=== PATIENT | female | born 1960 | race Caucasian/White ===

== ENCOUNTER → 2017-09-24 | Outpatient (CLI) | payer OTHER ==
[~2017-09-24] MED LIST: AMLO5 PO; AMOX875 PO; ASPI81CH PO; ATOR10 PO; ATOR40TA PO; BYDUREON2 MG SQ; CYAN500 PO; FERR325 PO; FURO20 PO; FURO40 PO; GABA300 PO; GABA400 PO; INSLI100I SC; INSULANI SUBQ; INSULANPEN SC; IRON150C PO; LOSA50 PO; METF500 PO; NEBI10 PO; OMEP20ER PO; SPIR25 PO; TIOT18 INH
== END | disposition home or self-care (01) ==
LOC: LAB SHORT 10:57 → LAB EV 10:57
DX: J18.0 Bronchopneumonia, unspecified organism (principal)
CPT/HCPCS: 83880

== ENCOUNTER → 2018-04-03 | Outpatient (CLI) | payer OTHER | LOC: LAB SHORT 15:20 → LAB EV 15:20 | DX: R30.0 Dysuria (principal) | CPT/HCPCS: 87077; 87086; 87186 ==

== ENCOUNTER → 2018-04-11 | Outpatient (CLI) | payer OTHER ==
[~2018-04-11] MED LIST changes: +Amox Tr-K Clv1 EAC1 PO; +INSU100I6 SC; +METO25ER PO; +NORT25 PO
[2018-04-11 16:34] LABS: BASOPHILS ABSOLUTE AUTO 0.05 K/mm3 (0.00-0.23); BASOPHILS PERCENT AUTO 1 % (0-2); EOSINOPHILS ABSOLUTE AUTO 0.31 K/mm3 (0.00-0.68); EOSINOPHILS PERCENT AUTO 3 % (0-6); Hematocrit 38.9 % (33.0-51.0); IMMATURE GRAN ABSOLUTE AUTO 0.03 K/mm3 (0.00-0.10); IMMATURE GRAN PERCENT AUTO 0 % (0-1); LYMPHOCYTES ABSOLUTE AUTO 4.21 K/mm3 (0.84-5.20); LYMPHOCYTES PERCENT AUTO 41 % (21-46); MONOCYTES ABSOLUTE AUTO 0.67 K/mm3 (0.16-1.47); MONOCYTES PERCENT AUTO 7 % (4-13); Mean Corpuscular HGB 28.1 pg (26.0-34.0); Mean Corpuscular HGB Conc 33.4 g/dL (31.5-36.5); Mean Corpuscular Volume 84 fL (80-100); NEUTROPHILS ABSOLUTE AUTO 4.92 K/mm3 (1.96-9.15); NEUTROPHILS PERCENT AUTO 48 % (41-73); Platelet Count 326 K/mm3 (150-400); RDW Coefficient Variation 14.8 % (11.7-14.2); RDW Standard Deviation 44.6 fL (35.1-46.3); Red Blood Cell Count 4.63 M/mm3 (3.80-5.20); White Blood Cell Count 10.19 K/mm3 (4.00-11.30)
[2018-04-11 16:43] LABS: Calcium, Blood 10.5 mg/dL (8.5-10.1); Creatinine, Blood 2.47 mg/dL (0.40-1.00); Potassium, Blood 4.5 mmol/L (3.5-5.5)
== END ==
LOC: LAB SHORT 16:28 → LAB EV 16:28
PROVIDERS: Nurse Practitioner
DX: L97.909 Non-pressure chronic ulcer of unspecified part of unspecified lower leg with unspecified severity (principal); Z53.9 Procedure and treatment not carried out, unspecified reason
CPT/HCPCS: 80048; 85025; 85651

== ENCOUNTER 2018-04-13 13:28 | Emergency (ER) | payer OTHER ==
[~2018-04-13] VITALS: Ht 167.6 cm; Wt 123.0 kg
[~2018-04-13 13:28] MED LIST changes: -Amox Tr-K Clv1 EAC1 PO; -INSU100I6 SC; -METO25ER PO; -NORT25 PO
[2018-04-13] MEDS ORDERED: METO25ER PO ×2 (15:06)
[2018-04-13] MEDS ORDERED: NORT25 PO ×2 (15:08)
== END 2018-04-13 13:40 | disposition left against medical advice (07) ==
LOC: ER 13:28
DX: Z53.21 Procedure and treatment not carried out due to patient leaving prior to being seen by health care provider (principal)

== ENCOUNTER 2018-04-13 14:29 | Inpatient (IN) | payer OTHER ==
[~2018-04-13] VITALS: Ht 167.6 cm; Wt 123.0 kg
[2018-04-13] MEDS ORDERED: METO25ER PO ×2 (15:06)
[2018-04-13] MEDS ORDERED: NORT25 PO ×2 (15:08)
[2018-04-13 16:53] LABS: Source, Urine Clean Catch
[2018-04-13 16:56] LABS: Bilirubin, Urine Neg (Neg); Blood, Urine Neg (Neg); Glucose Qualitative, Urine 1+ (Neg); Ketones, Urine Neg (Neg); Leukocyte Esterase, Urine Neg (Neg); Nitrite, Urine Neg (Neg); Protein, Urine Neg (Neg); Urobilinogen, Urine NORM (Normal)
[2018-04-13 17:13] LABS: Appearance, Urine Clear (Clear); Color, Urine Yellow (P-Yellow)
[2018-04-14 05:15] LABS: BASOPHILS ABSOLUTE AUTO 0.03 K/mm3 (0.00-0.23); BASOPHILS PERCENT AUTO 0 % (0-2); EOSINOPHILS ABSOLUTE AUTO 0.25 K/mm3 (0.00-0.68); EOSINOPHILS PERCENT AUTO 3 % (0-6); Hematocrit 34.3 % (33.0-51.0); Hemoglobin 11.2 g/dL (11.5-16.0); IMMATURE GRAN ABSOLUTE AUTO 0.03 K/mm3 (0.00-0.10); IMMATURE GRAN PERCENT AUTO 0 % (0-1); LYMPHOCYTES ABSOLUTE AUTO 4.18 K/mm3 (0.84-5.20); LYMPHOCYTES PERCENT AUTO 52 % (21-46); MONOCYTES ABSOLUTE AUTO 0.54 K/mm3 (0.16-1.47); MONOCYTES PERCENT AUTO 7 % (4-13); Mean Corpuscular HGB 27.6 pg (26.0-34.0); Mean Corpuscular HGB Conc 32.7 g/dL (31.5-36.5); Mean Platelet Volume 10.9 fL (9.1-12.4); NEUTROPHILS ABSOLUTE AUTO 2.95 K/mm3 (1.96-9.15); NEUTROPHILS PERCENT AUTO 37 % (41-73); Platelet Count 274 K/mm3 (150-400); RDW Coefficient Variation 14.5 % (11.7-14.2); RDW Standard Deviation 44.1 fL (35.1-46.3); Red Blood Cell Count 4.06 M/mm3 (3.80-5.20); White Blood Cell Count 7.98 K/mm3 (4.00-11.30)
[2018-04-14 05:19] LABS: Mean Corpuscular Volume 85 fL (80-100)
[2018-04-14 05:39] LABS: Bun/Creatinine Ratio 20.5 (12.0-20.0); Calcium, Blood 8.7 mg/dL (8.5-10.1); Creatinine, Blood 1.51 mg/dL (0.40-1.00); Potassium, Blood 4.1 mmol/L (3.5-5.5)
[2018-04-15 05:36] LABS: BASOPHILS ABSOLUTE AUTO 0.03 K/mm3 (0.00-0.23); BASOPHILS PERCENT AUTO 0 % (0-2); EOSINOPHILS PERCENT AUTO 5 % (0-6); Hematocrit 33.6 % (33.0-51.0); Hemoglobin 10.8 g/dL (11.5-16.0); IMMATURE GRAN ABSOLUTE AUTO 0.02 K/mm3 (0.00-0.10); IMMATURE GRAN PERCENT AUTO 0 % (0-1); LYMPHOCYTES ABSOLUTE AUTO 3.14 K/mm3 (0.84-5.20); LYMPHOCYTES PERCENT AUTO 47 % (21-46); MONOCYTES ABSOLUTE AUTO 0.43 K/mm3 (0.16-1.47); MONOCYTES PERCENT AUTO 6 % (4-13); Mean Corpuscular HGB 27.8 pg (26.0-34.0); Mean Corpuscular HGB Conc 32.1 g/dL (31.5-36.5); Mean Corpuscular Volume 87 fL (80-100); Mean Platelet Volume 10.7 fL (9.1-12.4); NEUTROPHILS ABSOLUTE AUTO 2.81 K/mm3 (1.96-9.15); NEUTROPHILS PERCENT AUTO 42 % (41-73); Platelet Count 234 K/mm3 (150-400); RDW Coefficient Variation 14.2 % (11.7-14.2); RDW Standard Deviation 44.8 fL (35.1-46.3); Red Blood Cell Count 3.88 M/mm3 (3.80-5.20); White Blood Cell Count 6.73 K/mm3 (4.00-11.30)
[2018-04-15 05:53] LABS: Bun/Creatinine Ratio 16.3 (12.0-20.0); Calcium, Blood 8.5 mg/dL (8.5-10.1); Creatinine, Blood 1.47 mg/dL (0.40-1.00)
[2018-04-15] MEDS ORDERED: Amox Tr-K Clv1 EAC1 PO ×2 (16:21)
[2018-04-15] MEDS ORDERED: INSU100I6 SC ×2 (16:22)
== END 2018-04-15 18:18 | disposition home or self-care (01) | DRG 638 ==
LOC: MEDS 14:29
PROVIDERS: Internal Medicine; Student in an Organized Health Care Education/Training Program
DX: E11.621 Type 2 diabetes mellitus with foot ulcer (principal); L97.419 Non-pressure chronic ulcer of right heel and midfoot with unspecified severity; L03.115 Cellulitis of right lower limb; N17.9 Acute kidney failure, unspecified; E11.51 Type 2 diabetes mellitus with diabetic peripheral angiopathy without gangrene; E11.40 Type 2 diabetes mellitus with diabetic neuropathy, unspecified; E11.319 Type 2 diabetes mellitus with unspecified diabetic retinopathy without macular edema; E11.21 Type 2 diabetes mellitus with diabetic nephropathy; E11.43 Type 2 diabetes mellitus with diabetic autonomic (poly)neuropathy; K31.84 Gastroparesis; E11.22 Type 2 diabetes mellitus with diabetic chronic kidney disease; Z86.73 Personal history of transient ischemic attack (TIA), and cerebral infarction without residual deficits; I12.9 Hypertensive chronic kidney disease with stage 1 through stage 4 chronic kidney disease, or unspecified chronic kidney disease; E78.5 Hyperlipidemia, unspecified; Z79.82 Long term (current) use of aspirin; Z79.4 Long term (current) use of insulin; N18.3 Chronic kidney disease, stage 3 (moderate)
CPT/HCPCS: 36415; 73721; 80048; 81003; 82947; 83605; 85025; 85651; 93922; J1650; J1815; J2543; J3010; J3370; J7030; J7050

== ENCOUNTER → 2018-04-13 | Outpatient (CLI) | payer OTHER ==
[2018-04-13 12:33] LABS: BASOPHILS ABSOLUTE AUTO 0.04 K/mm3 (0.00-0.23); BASOPHILS PERCENT AUTO 0 % (0-2); EOSINOPHILS PERCENT AUTO 2 % (0-6); Hematocrit 44.7 % (33.0-51.0); Hemoglobin 14.3 g/dL (11.5-16.0); IMMATURE GRAN ABSOLUTE AUTO 0.04 K/mm3 (0.00-0.10); IMMATURE GRAN PERCENT AUTO 0 % (0-1); LYMPHOCYTES ABSOLUTE AUTO 3.24 K/mm3 (0.84-5.20); LYMPHOCYTES PERCENT AUTO 36 % (21-46); MONOCYTES ABSOLUTE AUTO 0.56 K/mm3 (0.16-1.47); MONOCYTES PERCENT AUTO 6 % (4-13); Mean Corpuscular HGB 28.1 pg (26.0-34.0); Mean Corpuscular Volume 88 fL (80-100); NEUTROPHILS ABSOLUTE AUTO 4.81 K/mm3 (1.96-9.15); NEUTROPHILS PERCENT AUTO 54 % (41-73); Platelet Count 270 K/mm3 (150-400); RDW Coefficient Variation 14.7 % (11.7-14.2); Red Blood Cell Count 5.09 M/mm3 (3.80-5.20); White Blood Cell Count 8.89 K/mm3 (4.00-11.30)
[2018-04-13 12:52] LABS: Bun/Creatinine Ratio 19.9 (12.0-20.0); Calcium, Blood 10.1 mg/dL (8.5-10.1); Creatinine, Blood 2.06 mg/dL (0.40-1.00); Potassium, Blood 5.2 mmol/L (3.5-5.5)
== END | disposition home or self-care (01) ==
LOC: LAB EV 12:29 → LAB SHORT 12:29
PROVIDERS: General Practice
DX: E11.40 Type 2 diabetes mellitus with diabetic neuropathy, unspecified (principal)
CPT/HCPCS: 80048; 85025

== ENCOUNTER → 2021-01-25 | Outpatient (CLI) | payer OTHER ==
[~2021-01-25] MED LIST changes: +Amox Tr-K Clv1 EAC1 PO; +INSU100I6 SC; +METO25ER PO; +NORT25 PO
[2021-01-25 14:04] LABS: Source, Urine Clean Catch
[2021-01-25 15:10] LABS: Appearance, Urine Hazy (Clear); Bilirubin, Urine Neg (Neg); Blood, Urine 1+ (Neg); Color, Urine Yellow (P-Yellow); Glucose Qualitative, Urine 4+ (Neg); Ketones, Urine Neg (Neg); Leukocyte Esterase, Urine 2+ (Neg); Nitrite, Urine Neg (Neg); Protein, Urine 2+ (Neg); Urobilinogen, Urine NORM (Normal)
[2021-01-25 16:26] LABS: Bacteria Many /hpf; Squamous Epithelial Cells Mod /hpf (Few); White Blood Cells, Urine 50-100 /hpf (0-5)
== END ==
LOC: LAB 09:45 → LAB SHORT 09:45
PROVIDERS: Internal Medicine
DX: N18.32 Chronic kidney disease, stage 3b (principal); R39.89 Other symptoms and signs involving the genitourinary system; Z88.1 Allergy status to other antibiotic agents; Z88.5 Allergy status to narcotic agent; Z88.8 Allergy status to other drugs, medicaments and biological substances
CPT/HCPCS: 81001; 87077; 87086; 87186

== ENCOUNTER 2021-04-19 20:05 | Emergency (ER) | payer OTHER ==
[~2021-04-19] VITALS: Ht 167.6 cm; Wt 117.9 kg
== END 2021-04-19 22:11 | disposition home or self-care (01) ==
LOC: ER 20:05
DX: S40.012A Contusion of left shoulder, initial encounter (principal); E11.649 Type 2 diabetes mellitus with hypoglycemia without coma; I10 Essential (primary) hypertension; Z79.4 Long term (current) use of insulin; Z79.899 Other long term (current) drug therapy; V49.9XXA Car occupant (driver) (passenger) injured in unspecified traffic accident, initial encounter
CPT/HCPCS: 82947; 96374; 99284-25; A9270

== ENCOUNTER → 2021-06-27 | Outpatient (CLI) | payer OTHER | END | disposition home or self-care (01) | LOC: LAB SHORT 12:25 | DX: L60.2 Onychogryphosis (principal); B35.1 Tinea unguium | CPT/HCPCS: 88305; 88312 ==

== ENCOUNTER 2022-08-27 07:02 | Inpatient (IN) | payer OTHER ==
[~2022-08-27] VITALS: Ht 167.6 cm; Wt 115.3 kg
[~2022-08-27 07:02] MED LIST changes: -ATOR40TA PO; +ATOR80 PO; -INSU100I6 SC; +NOVOLOG FL100 UNIT/3 SC
[2022-08-27 08:03] LABS: Source, Urine Straight Cath
[2022-08-27 08:06] LABS: Appearance, Urine Clear (Clear); Bilirubin, Urine Neg (Neg); Blood, Urine 2+ (Neg); Color, Urine Yellow (P-Yellow); Glucose Qualitative, Urine 4+ (Neg); Ketones, Urine 4+ (Neg); Leukocyte Esterase, Urine Neg (Neg); Nitrite, Urine Neg (Neg); Protein, Urine 4+ (Neg); Urobilinogen, Urine NORM (Normal)
[2022-08-27 08:32] LABS: Red Blood Cells, Urine 0-2 /hpf (0-2); White Blood Cells, Urine 0-2 /hpf (0-5)
[2022-08-27 08:33] LABS: Bacteria Few /hpf; Squamous Epithelial Cells Few /hpf (Few)
[2022-08-27 08:34] LABS: Hyaline Casts 0-2 /lpf (0-2)
[2022-08-27 09:04] LABS: Influenza A, PCR NEGATIVE (NEGATIVE); Influenza B, PCR NEGATIVE (NEGATIVE); Resp Syncytial Virus, PCR NEGATIVE (NEGATIVE); SARS-Cov-2 (COVID-19) PCR, MMC NEGATIVE (NEGATIVE)
[2022-08-27 09:23] LABS: BASOPHILS ABSOLUTE AUTO 0.06 K/mm3 (0.00-0.23); BASOPHILS PERCENT AUTO 0 % (0-2); EOSINOPHILS PERCENT AUTO 0 % (0-6); Hematocrit 49.5 % (33.0-51.0); Hemoglobin 16.1 g/dL (11.5-16.0); IMMATURE GRAN ABSOLUTE AUTO 0.14 K/mm3 (0.00-0.10); IMMATURE GRAN PERCENT AUTO 1 % (0-1); LYMPHOCYTES ABSOLUTE AUTO 2.85 K/mm3 (0.84-5.20); LYMPHOCYTES PERCENT AUTO 17 % (21-46); MONOCYTES ABSOLUTE AUTO 0.44 K/mm3 (0.16-1.47); MONOCYTES PERCENT AUTO 3 % (4-13); Mean Corpuscular HGB 28.4 pg (26.0-34.0); Mean Corpuscular HGB Conc 32.5 g/dL (31.5-36.5); Mean Corpuscular Volume 88 fL (80-100); Mean Platelet Volume 11.9 fL (9.1-12.4); NEUTROPHILS ABSOLUTE AUTO 13.47 K/mm3 (1.96-9.15); NEUTROPHILS PERCENT AUTO 79 % (41-73); Platelet Count 456 K/mm3 (150-400); RDW Coefficient Variation 14.4 % (11.7-14.2); RDW Standard Deviation 45.6 fL (35.1-46.3); Red Blood Cell Count 5.66 M/mm3 (3.80-5.20); White Blood Cell Count 16.96 K/mm3 (4.00-11.30)
[2022-08-27 10:42] LABS: Albumin, Blood 3.4 g/dL (3.4-5.0); Albumin/Globulin Ratio 0.6 (0.8-1.8); Bilirubin, Total 1.1 mg/dL (0.1-1.0); Bun/Creatinine Ratio 34.8 (12.0-20.0); Calcium, Blood 11.6 mg/dL (8.5-10.1); Creatinine, Blood 1.38 mg/dL (0.40-1.00); Globulin, Blood 5.6 g/dL (2.2-4.0); Potassium, Blood 4.4 mmol/L (3.5-5.5)
[2022-08-27 10:43] LABS: Beta-hydroxybutyrate 104.5 mg/dL (0.2-2.8)
--- NOTE | 2022-08-27 15:49 | NUR ---
PROVIDER UPDATE: Seng Simms NP called and notified of large amount of coffee ground emesis upon arrival to ICU. See new orders.
[2022-08-27 15:50] LABS: Bun/Creatinine Ratio 35.3 (12.0-20.0); Calcium, Blood 10.7 mg/dL (8.5-10.1); Creatinine, Blood 1.56 mg/dL (0.40-1.00); Potassium, Blood 3.7 mmol/L (3.5-5.5)
[2022-08-27 16:08] LABS: Hematocrit 44.6 % (33.0-51.0); Hemoglobin 14.9 g/dL (11.5-16.0)
[2022-08-27 16:11] LABS: Glucose, Blood 670 mg/dL (70-99)
[2022-08-27 17:03] LABS: Glucose, Blood 571 mg/dL (70-99)
--- NOTE | 2022-08-27 18:53 | NUR ---
SHIFT SUMMARY: Pt arrived to ICU at 1418 from ED. Upon arrival her blood was sent for an accurate glucose level. NEURO: alert to stimulation; oriented x 0. speech mumbled. HUANG CARDIAC: sinus tachycardia with elevated BPs RESPIRATORY: dim on RA, satting above 92% GI/: one bout of coffee ground emesis. family states she has been having coffee ground emesis for several days now. SKIN: sore to right lateral foot and between 1st & 2nd toe on plantar aspect of foot. She was prevously being treating for cellulitis which appears to be improving per family. PSYCH/SOCIAL: medication list obtained from PCP. yet to be updated on reconcilliation. family at bedside and supportive.
--- NOTE | 2022-08-27 19:30 | NUR ---
ASSESSMENT/ASSUMED CARE PT SLEEPING. OPENS EYES AND MOANS TO VERBAL STIMULI. NOT FOLLOWING INSTRUCTIONS OR ANSWERING QUESTIONS. LUNGS CLEAR BUT DECREASED ON ROOMAIR. RESP EVEN AND NONLABORED. HEART RATE ELEVATED IN THE 120'S. BP ELEVATED. REPLACED BP CUFF. WILL CONT TO MONITOR. BT+ HYPOACTIVE. ABD SOFT AND NONTENDER. ATTENDS WET. NATASHA CARE DONE. ATTENDS AND PUREWICK CHANGED. IV POWER GLIDE TO RIGHT UPPER ARM. SITE CLEAR AND DRSG INTACT. PT REPOSITIONED. WOUNDS NOTED TO RIGHT FOOT. ELEVATED EXT ON PILLOWS. INSULIN AT 4 UNITS/HR AND LR AT 350 ML/HR. CONT TO MONITOR BLOOD GLUCOSE Q1HR.
[2022-08-27 19:57] LABS: Hematocrit 42.2 % (33.0-51.0); Hemoglobin 14.4 g/dL (11.5-16.0)
[2022-08-27 20:15] LABS: Bun/Creatinine Ratio 38.3 (12.0-20.0); Calcium, Blood 10.1 mg/dL (8.5-10.1); Creatinine, Blood 1.41 mg/dL (0.40-1.00); Potassium, Blood 3.7 mmol/L (3.5-5.5)
--- NOTE | 2022-08-27 21:08 | NUR ---
HYPERTENSION BP 209/101 MAP 127 HEART RATE 122. MED WITH 10 MG HYDRALAZINE
--- NOTE | 2022-08-27 22:50 | NUR ---
HYPERTENSION BP 185/89 MAP 111, HEART RATE 123. PT SLEEPING. CALL TO DR ZAZUETA REGARDING BP
--- NOTE | 2022-08-28 01:33 | NUR ---
BLOOD GLUCOSE 261. IV FLUID CHANGED TO D5 1/2 AT 150 ML/HR. INCREASED INSULIN GTT TO 7 UNITS
[2022-08-28] MEDS ORDERED: MULVITA PO (02:03)
[2022-08-28] MEDS ORDERED: ZYRTEC10 M2 PO (02:04)
[2022-08-28] MEDS ORDERED: FLUC150A PO (02:05)
[2022-08-28] MEDS ORDERED: NOVOLIN 70100 UNIT/4 SC (02:06)
[2022-08-28 02:56] LABS: BASOPHILS ABSOLUTE AUTO 0.03 K/mm3 (0.00-0.23); BASOPHILS PERCENT AUTO 0 % (0-2); EOSINOPHILS ABSOLUTE AUTO 0.01 K/mm3 (0.00-0.68); EOSINOPHILS PERCENT AUTO 0 % (0-6); Hematocrit 39.4 % (33.0-51.0); Hemoglobin 13.5 g/dL (11.5-16.0); IMMATURE GRAN PERCENT AUTO 1 % (0-1); LYMPHOCYTES ABSOLUTE AUTO 2.88 K/mm3 (0.84-5.20); LYMPHOCYTES PERCENT AUTO 16 % (21-46); MONOCYTES PERCENT AUTO 6 % (4-13); Mean Corpuscular HGB 28.7 pg (26.0-34.0); Mean Corpuscular HGB Conc 34.3 g/dL (31.5-36.5); Mean Corpuscular Volume 84 fL (80-100); Mean Platelet Volume 11.4 fL (9.1-12.4); NEUTROPHILS PERCENT AUTO 77 % (41-73); Platelet Count 364 K/mm3 (150-400); RDW Coefficient Variation 14.5 % (11.7-14.2); RDW Standard Deviation 43.9 fL (35.1-46.3); Red Blood Cell Count 4.71 M/mm3 (3.80-5.20); White Blood Cell Count 17.82 K/mm3 (4.00-11.30)
[2022-08-28 03:15] LABS: Bun/Creatinine Ratio 38.4 (12.0-20.0); Calcium, Blood 10.3 mg/dL (8.5-10.1); Creatinine, Blood 1.25 mg/dL (0.40-1.00); Potassium, Blood 3.2 mmol/L (3.5-5.5)
--- NOTE | 2022-08-28 04:43 | NUR ---
SLEEP APNEA PT SLEEPING, SPO2 DOWN TO 81% ON ROOMAIR. 2 LITER O2 VIA NC PLACED. SPO2 UP TO 97%
--- NOTE | 2022-08-28 06:32 | NUR ---
SHIFT SUMMARY PT RESTING QUIETLY AT THIS TIME. SPEECH CLEAR THIS AM, BUT PT ONLY SAYING "HELP ME" AND "VOLODYMYR". NOT ANSWERING QUESTIONS OR FOLLOWING INSTRUCTIONS. PLACED ON 2 LITERS O2 DURING THE NIGHT FOR SPO2 DOWN TO 81% WHILE SLEEPING. SPO2 UP TO 99% WITH O2 ON WHILE SLEEPING. PT CURRENTLY ON ROOMAIR. SPO2 95%. PT MOVING SELF IN BED. SECOND POWER GLIDE PLACED TO LEFT UPPER ARM. IV FLUID CHANGED FROM LR TO D5 1/2 AT 150 ML/HR. TITIRATED INSULIN DURING THE NIGHT. CURRENTLY INSULIN AT 10 UNITS. TALKED WITH DAUGHTER REGARDING PT BASELINE MENTATION. DAUGHTER STATES,"SHE NORMAL TAKES CARE OF HER SELF AND IS A&O. YOU WOULD NEVER KNOW SHE HAS HAD A CVA. SHE DOES EVERYTHING JUST LIKE YOU OR I DO". PT HAS HAD HYPERTENSION DURING THE NIGHT AND HAS RECEIVED SEVERAL DOSES OF HYDRALAZINE, LABETALOL AND IS NOW ON A CATAPRESS PATCH. REPORT TO ON COMING NURSE
--- NOTE | 2022-08-28 08:20 | NUR ---
Received report from Justina MEJIA. Patient awake in bed and mumble help me. I did get her to say a few words other than help me and then she dozes off. She awakens easily to verbal stimuli. She is on RA and sats 95%. She has pure wick in place to suction yellow urineShe has bilateral 20ga PowerGlides to Upper arms. ANTONY infusing regular insulin at 11 units/hr and JOANNE infusing D% 1/2 NS with potassium finishing up. MAEW. She is poor at following commands and assist with turning. Her temp is 98.4.
[2022-08-28 09:07] LABS: Hematocrit 38.2 % (33.0-51.0); Hemoglobin 12.9 g/dL (11.5-16.0)
[2022-08-28 09:20] LABS: Bun/Creatinine Ratio 32.3 (12.0-20.0); Creatinine, Blood 1.27 mg/dL (0.40-1.00); Potassium, Blood 3.7 mmol/L (3.5-5.5)
--- NOTE | 2022-08-28 10:41 | NUR ---
Dr Haley has been by and stop D5 1/2 and changed to NS at 100 ml/hr. Stopped Lovenox and Protonix BID. Started Protonix gtt at 8mg/hr. Patient recieved Hydralazine 10mg and did little, noc shift tried labatelol with little succes. Patient got full chlorahexidien bath, linen change, alot of oral care, and changed pure wick. She has small paste stool. Family has been at bedside. Daughter brought med list in and updated. Last insulin rate after all changes is 143 at 3 units an hour from previous 168 and reduced insulin gtt to 1 unit an hour.
--- NOTE | 2022-08-28 11:19 | NUR ---
Pastoral care in room with patient and family. No changes to gtt or patients neuro. Patient resting. Pure wick intact. She remains on RA and sast >95%.
--- NOTE | 2022-08-28 11:32 | NUR ---
"Spiritual Care | Pt./Family request Pt. is awake in bed not displays evidence of being non-responsive. Family memebers welcome my visit. Through family members I am able to fecilitate a life review. Pt. is a woman of [place] and is active in a local [employer]. Listen to family with empathy and a pastoral presence. Family displays evidence of being engaged and supportive of Pt. Prayed with Pt. Family verbalized gratitude for the spiritual care visit."
[2022-08-28 14:41] LABS: Hematocrit 38.1 % (33.0-51.0); Hemoglobin 12.8 g/dL (11.5-16.0)
--- NOTE | 2022-08-28 15:08 | NUR ---
Patient remains on RA and sats >90%. Patient still unable to hold conversation. She mumbles "help me, Help me". Family at bedside consoleing her. She remqains NPO. Her CBG's were down as low as 146 and have come back up to 200's with increase in insulin gtt as well and currently at 5 units/hr and dxropped 12 points from last reading. She repositions self. Pure wick to suction yellow urine.
[2022-08-28 18:06] LABS: U Amphetamine Screen Not Detected; U Barbituate Screen Not Detected; U Benzodiazapine Screen Not Detected; U Buprenorphine Screen Not Detected; U Cannabinoids Screen Not Detected; U Cocaine Screen Not Detected; U Methadone Screen Not Detected; U Methamphetamine Screen Not Detected; U Opiates Screen Not Detected; U Oxycodone Screen Not Detected; U Phencyclidine Screen Not Detected; U Propoxyphene Screen Not Detected
--- NOTE | 2022-08-28 18:12 | NUR ---
Patient has been resting in bed with alot of family in and out today. She is alert to verbal stimuli and mumbles a few words. When asking her questions she looks up and stairs blankly. She remains on RA and sats >90%.Family had concerns and asked for CT head and she went down and was negative. BP has come down in the 130-140's systolic. She continues to position self for comfort, pulls at BP cuff occassionally. Pure wick had 700 mls of yellow urine out.
[2022-08-29 03:18] LABS: BASOPHILS ABSOLUTE AUTO 0.02 K/mm3 (0.00-0.23); BASOPHILS PERCENT AUTO 0 % (0-2); EOSINOPHILS PERCENT AUTO 0 % (0-6); Hematocrit 37.7 % (33.0-51.0); Hemoglobin 12.5 g/dL (11.5-16.0); IMMATURE GRAN ABSOLUTE AUTO 0.08 K/mm3 (0.00-0.10); IMMATURE GRAN PERCENT AUTO 1 % (0-1); LYMPHOCYTES ABSOLUTE AUTO 2.79 K/mm3 (0.84-5.20); LYMPHOCYTES PERCENT AUTO 21 % (21-46); MONOCYTES ABSOLUTE AUTO 0.92 K/mm3 (0.16-1.47); MONOCYTES PERCENT AUTO 7 % (4-13); Mean Corpuscular HGB Conc 33.2 g/dL (31.5-36.5); Mean Corpuscular Volume 88 fL (80-100); Mean Platelet Volume 11.2 fL (9.1-12.4); NEUTROPHILS ABSOLUTE AUTO 9.31 K/mm3 (1.96-9.15); NEUTROPHILS PERCENT AUTO 71 % (41-73); Platelet Count 294 K/mm3 (150-400); RDW Coefficient Variation 15.1 % (11.7-14.2); RDW Standard Deviation 48.3 fL (35.1-46.3); Red Blood Cell Count 4.31 M/mm3 (3.80-5.20); White Blood Cell Count 13.12 K/mm3 (4.00-11.30)
[2022-08-29 04:16] LABS: Albumin, Blood 2.5 g/dL (3.4-5.0); Albumin/Globulin Ratio 0.7 (0.8-1.8); Bilirubin, Total 0.3 mg/dL (0.1-1.0); Bun/Creatinine Ratio 30.2 (12.0-20.0); Creatinine, Blood 1.29 mg/dL (0.40-1.00); Globulin, Blood 3.6 g/dL (2.2-4.0); Potassium, Blood 3.5 mmol/L (3.5-5.5)
[2022-08-29 04:36] LABS: Total Protein, Blood 6.1 g/dL (6.4-8.2)
--- NOTE | 2022-08-29 06:33 | NUR ---
Shift Summary: Patient intermittently drowsy vs anxious/ restless. Does not follow commands consistently. Unable to asnwer orientation questions, just calls out for help. At the beginning of the shift, midline noted to be infiltrated. Insulin drip stopped and MD notified. Switched to sliding scale insulin by MD. Still on protonix drip, no evidence of GI bleeding. Incontinent of urine and stool, no blood noted in stool. No nausea or vomiting or complaints of pain. Patient is able to turn self side to side. She has been persistently hypertensive, responsive to hydralazine. Sinus tach in the 100-110 range. Central line placed due to poor peripheral access.
--- NOTE | 2022-08-29 09:00 | NUR ---
Assumed care for pt at 0700. She is on NS gtt @ 100 ml/hr w/ a R IJ quad-lumen and poerglide in left upper arm. Pt A&Ox1, GCS 11, per family at bedside she is normally ambulatory and manages her ADLs herself.
--- NOTE | 2022-08-29 17:59 | NUR ---
Called report to Zoraida MEJIA for room # 347.
--- NOTE | 2022-08-29 18:33 | NUR ---
PT ARRIVED TO THE UNIT. ORIENTED TO THE ROOM. CALL LIGHT TERESA JACOBS.
--- NOTE | 2022-08-30 06:00 | NUR ---
END OF SHIFT NURSING REPORT Admitted on 08/27/22 for DKA and placed in ICU for insulin drip and IVF. Anion gap closed and insulin gtt dc the same day. She has a quad-lumen CVC on right internal jugular and Left upper arm midline, both draw and flush w/o difficulty. She has branchable redness to coccyx, sacral boarder mepilex applied and patient repositioned frequently. She is AOX4 this AM, able to use call lights and request for care needs. Continues on Ancef IVP.
--- NOTE | 2022-08-30 11:18 | NUR ---
Pt. is awake and inclined on her bed as she welcomes my visit. Pt. displays evidence of clarity since her transfer from ICU. Family members are present. Facilitate a life review, and through theraputic listening am able to establish rapport. Pep with Pt. and family. Pt. verbalized gratitude for the spiritual care visit.
--- NOTE | 2022-08-30 19:44 | NUR ---
SHIFT SUMMARY- PT IS A/O, PLESANT AND COOPERATIVE. HER BLOOD GLUCOSE LEVELS HAVE BEEN IN THE 200's THIS SHIFT. NOTIFIED NIGHT DOCTOR THAT PT TAKES HIGHER DOSE OF LONG LASTING INSULIN AT HOME. GI CONSULTED, PT WILL GO FOR AN UPPER SCOPE TOMORROW. PHYSICAL THERAPY ORDERD FOR EVALUATION BEFORE DISCHARGE. SHE IS EATING AND DRINKING WELL. FAMILY AT BEDSIDE THIS SHIFT. HER BED IS IN THE LOW POSOTION AND CALL LIGHT IS WITHIN REACH.
--- NOTE | 2022-08-31 06:46 | NUR ---
Shift Summary Pt on bed rest/chairfast, rested in bed this evening. Incontinet with purewick in place, attends changed and repositioned PRN. PT NPO except for water awaiting endoscopy, strict NPO begins at 1200. VSS, slept well t/o the night, pleasant and cooperative.
[2022-08-31 08:50] LABS: Hematocrit 35.3 % (33.0-51.0); Hemoglobin 11.5 g/dL (11.5-16.0); Mean Corpuscular HGB 28.7 pg (26.0-34.0); Mean Corpuscular HGB Conc 32.6 g/dL (31.5-36.5); Mean Corpuscular Volume 88 fL (80-100); Mean Platelet Volume 11.2 fL (9.1-12.4); Platelet Count 190 K/mm3 (150-400); RDW Coefficient Variation 14.2 % (11.7-14.2); RDW Standard Deviation 45.4 fL (35.1-46.3); Red Blood Cell Count 4.01 M/mm3 (3.80-5.20); White Blood Cell Count 8.58 K/mm3 (4.00-11.30)
[2022-08-31 09:06] LABS: Bun/Creatinine Ratio 30.6 (12.0-20.0); Calcium, Blood 8.7 mg/dL (8.5-10.1); Creatinine, Blood 1.34 mg/dL (0.40-1.00); Potassium, Blood 3.2 mmol/L (3.5-5.5)
--- NOTE | 2022-08-31 16:38 | NUR ---
SHIFT SUMMARY- PT PLEASANT. A&O X3. PICC PATENT BUT DOSE NOT DRAW. FAMILY AT BEDSIDE. PT IN PROCEDURE THIS AFTERNOON. NO N/V THIS SHIFT. WILL CONTINUE TO MONITOR. BED ALARM ON, SIDE RAILS UP X3, AND CALL LIGHT IN REACH.
--- NOTE | 2022-08-31 16:42 | NUR ---
08/31/22 [address] ISLAS. SEE ANESTHESIA RECORDS
[2022-09-01 04:57] LABS: Hematocrit 33.5 % (33.0-51.0); Hemoglobin 11.2 g/dL (11.5-16.0); Mean Corpuscular HGB Conc 33.4 g/dL (31.5-36.5); Mean Corpuscular Volume 87 fL (80-100); Mean Platelet Volume 11.4 fL (9.1-12.4); Platelet Count 188 K/mm3 (150-400); RDW Standard Deviation 44.4 fL (35.1-46.3); Red Blood Cell Count 3.86 M/mm3 (3.80-5.20); White Blood Cell Count 9.41 K/mm3 (4.00-11.30)
--- NOTE | 2022-09-01 05:04 | NUR ---
Shift Summary AOX3, pleasant and cooperative. No c/o nausea or pain. PG in JOANNE has some resistance to flushing, causes frequent distal occlusion errors on pump while infusing. VSS, slept well t/o most of the night.
[2022-09-01 05:10] LABS: Bun/Creatinine Ratio 32.4 (12.0-20.0); Calcium, Blood 8.5 mg/dL (8.5-10.1); Creatinine, Blood 1.08 mg/dL (0.40-1.00); Potassium, Blood 3.5 mmol/L (3.5-5.5)
--- NOTE | 2022-09-01 13:28 | NUR ---
LATE ENTRY: 1315: WRITTEN AND VERBAL DC INSTRUCTIONS GIVEN TO PT WITH DTR PRESENT, BOTH VERBALIZED GOOD UNDERSTANDING. PIV DC'D WITH CATH TIP INTACT, NO REDNESS OR SWELLING NOTED. PUREWICK REMOVED. PT AMBULATED TO CHAIR IN ROOM TO CHANGE INTO STREET CLOTHES. NO NEW MEDS TO FAX TO PHARM. PT TO PRIVATE VEHICLE VIA W/C WITH ALL PERSONAL BELOMGINGS DTR TO DRIVE PT HOME.
== END 2022-09-01 14:42 | disposition home or self-care (01) | DRG 637 ==
LOC: ER 07:02 → MEDS 11:36 → ICUW 11:36 → MEDS 08-29 18:12
PROVIDERS: Emergency Medicine; Internal Medicine; Nurse Practitioner Acute Care; ADMIT Internal Medicine
PROC: 02HV33Z Insertion of Infusion Device into Superior Vena Cava, Percutaneous Approach (ICD-10-PCS; principal; 2022-08-29)
PROC: 0DB68ZZ Excision of Stomach, Via Natural or Artificial Opening Endoscopic (ICD-10-PCS; 2022-08-31)
DX: E11.10 Type 2 diabetes mellitus with ketoacidosis without coma (principal); G92.8 Other toxic encephalopathy; K92.0 Hematemesis; Z68.41 Body mass index [BMI] 40.0-44.9, adult; L03.115 Cellulitis of right lower limb; Z20.822 Contact with and (suspected) exposure to COVID-19; K21.9 Gastro-esophageal reflux disease without esophagitis; K31.7 Polyp of stomach and duodenum; K44.9 Diaphragmatic hernia without obstruction or gangrene; K31.84 Gastroparesis; I12.9 Hypertensive chronic kidney disease with stage 1 through stage 4 chronic kidney disease, or unspecified chronic kidney disease; E78.5 Hyperlipidemia, unspecified; E66.01 Morbid (severe) obesity due to excess calories; E11.22 Type 2 diabetes mellitus with diabetic chronic kidney disease; E11.51 Type 2 diabetes mellitus with diabetic peripheral angiopathy without gangrene; E11.40 Type 2 diabetes mellitus with diabetic neuropathy, unspecified; E11.621 Type 2 diabetes mellitus with foot ulcer; E11.43 Type 2 diabetes mellitus with diabetic autonomic (poly)neuropathy; L97.519 Non-pressure chronic ulcer of other part of right foot with unspecified severity; N18.30 Chronic kidney disease, stage 3 unspecified; Z86.73 Personal history of transient ischemic attack (TIA), and cerebral infarction without residual deficits; Z86.718 Personal history of other venous thrombosis and embolism; Z98.890 Other specified postprocedural states; Z98.891 History of uterine scar from previous surgery; Z88.5 Allergy status to narcotic agent; Z88.8 Allergy status to other drugs, medicaments and biological substances; Z79.4 Long term (current) use of insulin; Z79.82 Long term (current) use of aspirin; Z79.899 Other long term (current) drug therapy
CPT/HCPCS: 0241U; 36415; 36556; 70450; 71045; 80048; 80053; 81001; 82010; 82140; 82800; 82947; 83735; 84145; 84484; 85014; 85018; 85025; 85027; 87040; 93005; 93010; 96374; 97110; 97161; 97530; 99285-25; A9270; C1751; C9113; J0360; J0690; J1815; J2001; J2250; J2405; J2550; J2704; J2765; J3480; J7030; J7042; J7050; J7120; P9612

== ENCOUNTER → 2022-09-09 | Outpatient (CLI) | payer OTHER ==
[~2022-09-09] MED LIST changes: +CEPH500 PO; +FLUC150A PO; +MULVITA PO; +NOVOLIN 70100 UNIT/4 SC; +ZYRTEC10 M2 PO
[2022-09-09 11:05] LABS: BASOPHILS ABSOLUTE AUTO 0.03 K/mm3 (0.00-0.23); BASOPHILS PERCENT AUTO 0 % (0-2); EOSINOPHILS ABSOLUTE AUTO 0.37 K/mm3 (0.00-0.68); EOSINOPHILS PERCENT AUTO 4 % (0-6); Hematocrit 35.7 % (33.0-51.0); Hemoglobin 11.8 g/dL (11.5-16.0); IMMATURE GRAN ABSOLUTE AUTO 0.03 K/mm3 (0.00-0.10); IMMATURE GRAN PERCENT AUTO 0 % (0-1); LYMPHOCYTES ABSOLUTE AUTO 4.54 K/mm3 (0.84-5.20); LYMPHOCYTES PERCENT AUTO 51 % (21-46); MONOCYTES ABSOLUTE AUTO 0.59 K/mm3 (0.16-1.47); MONOCYTES PERCENT AUTO 7 % (4-13); Mean Corpuscular HGB 29.2 pg (26.0-34.0); Mean Corpuscular HGB Conc 33.1 g/dL (31.5-36.5); Mean Corpuscular Volume 88 fL (80-100); Mean Platelet Volume 11.4 fL (9.1-12.4); NEUTROPHILS ABSOLUTE AUTO 3.37 K/mm3 (1.96-9.15); NEUTROPHILS PERCENT AUTO 38 % (41-73); Platelet Count 323 K/mm3 (150-400); RDW Coefficient Variation 14.6 % (11.7-14.2); RDW Standard Deviation 46.5 fL (35.1-46.3); Red Blood Cell Count 4.04 M/mm3 (3.80-5.20); White Blood Cell Count 8.93 K/mm3 (4.00-11.30)
[2022-09-09 11:16] LABS: Albumin, Blood 2.9 g/dL (3.4-5.0); Albumin/Globulin Ratio 0.7 (0.8-1.8); Bilirubin, Total 0.2 mg/dL (0.1-1.0); Bun/Creatinine Ratio 12.2 (12.0-20.0); Calcium, Blood 9.6 mg/dL (8.5-10.1); Creatinine, Blood 2.3 mg/dL (0.40-1.00); Globulin, Blood 4.1 g/dL (2.2-4.0); Potassium, Blood 4.1 mmol/L (3.5-5.5)
== END | disposition home or self-care (01) ==
LOC: LAB 11:00 → LAB SHORT 11:00
PROVIDERS: Physician Assistant
DX: L03.90 Cellulitis, unspecified (principal)
CPT/HCPCS: 80053; 85025

== ENCOUNTER → 2022-09-11 | Outpatient (CLI) | payer OTHER | LOC: LAB 11:09 → LAB SHORT 11:09 | DX: R82.79 Other abnormal findings on microbiological examination of urine (principal) | CPT/HCPCS: 87077; 87086; 87186 ==

== ENCOUNTER → 2022-10-15 | Outpatient (CLI) | payer OTHER | END | disposition home or self-care (01) | LOC: LAB SHORT 14:09 → PLD 14:09 | DX: E11.52 Type 2 diabetes mellitus with diabetic peripheral angiopathy with gangrene (principal); I96 Gangrene, not elsewhere classified; Z89.411 Acquired absence of right great toe | CPT/HCPCS: 88305; 88311 ==

== ENCOUNTER 2023-01-21 22:02 | Emergency (ER) | payer OTHER ==
[~2023-01-21] VITALS: Ht 167.6 cm; Wt 117.5 kg
[2023-01-21 22:30] LABS: BASOPHILS ABSOLUTE AUTO 0.06 K/mm3 (0.00-0.23); BASOPHILS PERCENT AUTO 1 % (0-2); EOSINOPHILS ABSOLUTE AUTO 0.11 K/mm3 (0.00-0.68); EOSINOPHILS PERCENT AUTO 1 % (0-6); Hemoglobin 14.8 g/dL (11.5-16.0); IMMATURE GRAN ABSOLUTE AUTO 0.04 K/mm3 (0.00-0.10); IMMATURE GRAN PERCENT AUTO 0 % (0-1); LYMPHOCYTES ABSOLUTE AUTO 4.16 K/mm3 (0.84-5.20); LYMPHOCYTES PERCENT AUTO 39 % (21-46); MONOCYTES ABSOLUTE AUTO 0.61 K/mm3 (0.16-1.47); MONOCYTES PERCENT AUTO 6 % (4-13); Mean Corpuscular HGB 26.5 pg (26.0-34.0); Mean Corpuscular HGB Conc 33.6 g/dL (31.5-36.5); Mean Corpuscular Volume 79 fL (80-100); Mean Platelet Volume 11.1 fL (9.1-12.4); NEUTROPHILS ABSOLUTE AUTO 5.64 K/mm3 (1.96-9.15); NEUTROPHILS PERCENT AUTO 53 % (41-73); Platelet Count 325 K/mm3 (150-400); RDW Coefficient Variation 15.1 % (11.7-14.2); RDW Standard Deviation 42.9 fL (35.1-46.3); Red Blood Cell Count 5.58 M/mm3 (3.80-5.20); White Blood Cell Count 10.62 K/mm3 (4.00-11.30)
[2023-01-21 22:47] LABS: Albumin, Blood 3.5 g/dL (3.4-5.0); Albumin/Globulin Ratio 0.7 (0.8-1.8); Beta-hydroxybutyrate 23.3 mg/dL (0.2-2.8); Bilirubin, Total 0.5 mg/dL (0.1-1.0); Bun/Creatinine Ratio 28.6 (12.0-20.0); Calcium, Blood 10.1 mg/dL (8.5-10.1); Creatinine, Blood 1.19 mg/dL (0.40-1.00); Globulin, Blood 4.8 g/dL (2.2-4.0); Total Protein, Blood 8.3 g/dL (6.4-8.2)
[2023-01-21 23:17] LABS: Source, Urine Clean Catch
[2023-01-21 23:19] LABS: Bilirubin, Urine Neg (Neg); Blood, Urine 2+ (Neg); Glucose Qualitative, Urine 4+ (Neg); Ketones, Urine 4+ (Neg); Leukocyte Esterase, Urine 1+ (Neg); Nitrite, Urine Neg (Neg); Protein, Urine 4+ (Neg); Specific Gravity, Urine 1.015 (1.003-1.022); Urobilinogen, Urine NORM (Normal)
[2023-01-21 23:26] LABS: Appearance, Urine Hazy (Clear); Color, Urine Yellow (P-Yellow)
[2023-01-21 23:27] LABS: Bacteria Many /hpf; Red Blood Cells, Urine 0-2 /hpf (0-2); Squamous Epithelial Cells Rare /hpf (Few); White Blood Cells, Urine 25-50 /hpf (0-5); Yeast/Fungi Urine Few /hpf
[2023-01-22] MEDS ORDERED: PROBIOTIC DUO1 EACH PO (01:35)
[2023-01-22] MEDS ORDERED: ONDA4 PO (01:35)
[2023-01-22] MEDS ORDERED: CEFU250T47 PO (01:35)
[2023-01-22 01:58] VITALS: BP 160/72
[2023-01-25] MEDS ORDERED: INSULANPEN SC (14:21)
[2023-01-25] MEDS ORDERED: LOSA50 PO (14:22)
[2023-01-25] MEDS ORDERED: HUMALOG KW100 UNIT/1 SC (14:29)
[2023-01-25] MEDS ORDERED: CEPH500 PO (14:30)
[2023-02-13] MEDS ORDERED: Diflucan150 MG PO (16:01)
[2023-02-13] MEDS ORDERED: CEPH500 PO (16:01)
== END 2023-01-22 02:30 | disposition home or self-care (01) ==
LOC: ER 22:02
PROVIDERS: Student in an Organized Health Care Education/Training Program
DX: E11.22 Type 2 diabetes mellitus with diabetic chronic kidney disease (principal); N39.0 Urinary tract infection, site not specified; I12.9 Hypertensive chronic kidney disease with stage 1 through stage 4 chronic kidney disease, or unspecified chronic kidney disease; N18.30 Chronic kidney disease, stage 3 unspecified; E78.5 Hyperlipidemia, unspecified; Z88.5 Allergy status to narcotic agent; Z88.8 Allergy status to other drugs, medicaments and biological substances; Z79.899 Other long term (current) drug therapy; Z79.4 Long term (current) use of insulin; Z86.73 Personal history of transient ischemic attack (TIA), and cerebral infarction without residual deficits
CPT/HCPCS: 80053; 81001; 82010; 82947; 85025; 87077; 87086; 87186; 96361; 96365; 96375; 99283-25; A9270; J0696; J1815; J2405; J7030

== ENCOUNTER 2023-05-23 10:27 | Day surgery (SDC) | payer OTHER ==
[~2023-05-23] VITALS: Ht 154.9 cm; Wt 120.0 kg
[~2023-05-23 10:27] MED LIST changes: +CEFU250T47 PO; +Diflucan150 MG PO; +HUMALOG KW100 UNIT/1 SC; +ONDA4 PO; +PROBIOTIC DUO1 EACH PO
[2023-05-23] MEDS ORDERED: OMEP20ER PO (10:45)
[2023-05-23] MEDS ORDERED: CIPR500 PO (10:46)
[2023-05-23 10:49] VITALS: BP 137/63
[2023-05-23 15:50] VITALS: BP 119/73
--- NOTE | 2023-05-23 15:50 | NUR ---
PT BACK TO RECOVERY ROOM VIA BED AFTER PROCEDURE. DROWSY, BUT EASILY ROUSES TO VERBAL STIMULI. LEFT GROIN SITE WITH TEGADERM DRESSING IN PLACE, NO BLEEDING OR SWELLING NOTED AT SITE.
[2023-05-23 16:00] VITALS: BP 132/78
[2023-05-23 16:15] VITALS: BP 144/79
[2023-05-23 16:30] VITALS: BP 125/75
--- NOTE | 2023-05-23 16:39 | NUR ---
SNACKS AND WATER PROVIDED FOR PT. SITE REMAINS WNL UNCHANGED FROM PREVIOUS ASSESSMENT. VSS.
[2023-05-23 17:00] VITALS: BP 148/80
--- NOTE | 2023-05-23 17:29 | NUR ---
pt hob elevated, groin site remains wnl, unchanged from previous assessment. vss. food tray provided.
--- NOTE | 2023-05-23 18:16 | NUR ---
dr. wen in to see pt. pt okay to go home per dr. wen. site remains unchanged, soft no hematoma. pt. able to stand and ambulate w/o difficulty. site assessed after ambulation and remains unchanged. pt. and daughter educated with discharge instructions. no further questions, no new medications. plans for lle tx, lmom for bienvenido to schedule. f/u scheduled with treva calixto. pt. vss upon discharge, taken via wheel chair to exit.
== END 2023-05-23 18:15 | disposition home or self-care (01) ==
LOC: MHTC 10:27
DX: E11.51 Type 2 diabetes mellitus with diabetic peripheral angiopathy without gangrene (principal); L97.511 Non-pressure chronic ulcer of other part of right foot limited to breakdown of skin; I70.235 Atherosclerosis of native arteries of right leg with ulceration of other part of foot; N18.2 Chronic kidney disease, stage 2 (mild); E11.22 Type 2 diabetes mellitus with diabetic chronic kidney disease; K21.9 Gastro-esophageal reflux disease without esophagitis; E78.5 Hyperlipidemia, unspecified; Z86.718 Personal history of other venous thrombosis and embolism; Z86.73 Personal history of transient ischemic attack (TIA), and cerebral infarction without residual deficits; Z88.5 Allergy status to narcotic agent; Z88.1 Allergy status to other antibiotic agents; Z88.8 Allergy status to other drugs, medicaments and biological substances; Z79.82 Long term (current) use of aspirin; Z79.899 Other long term (current) drug therapy; Z79.4 Long term (current) use of insulin
CPT/HCPCS: 37224; 37228; 37232; 37252; 75625; 75716; 75774; 76937; 99152; 99153; C1725; C1753; C1760; C1769; C1887; C1894; C2623; J1644; J2250; J3010; J7030; J7050; Q9967

== ENCOUNTER → 2024-03-11 | Outpatient (CLI) | payer OTHER ==
[~2024-03-11] MED LIST changes: +CIPR500 PO; +RYBELSUS14 MG
[2024-03-11 14:57] LABS: Source, Urine Clean Catch
[2024-03-11 15:04] LABS: BASOPHILS ABSOLUTE AUTO 0.05 K/mm3 (0.00-0.23); BASOPHILS PERCENT AUTO 0 % (0-2); EOSINOPHILS ABSOLUTE AUTO 0.35 K/mm3 (0.00-0.68); EOSINOPHILS PERCENT AUTO 3 % (0-6); Hematocrit 42.5 % (33.0-51.0); Hemoglobin 13.8 g/dL (11.5-16.0); IMMATURE GRAN ABSOLUTE AUTO 0.03 K/mm3 (0.00-0.10); IMMATURE GRAN PERCENT AUTO 0 % (0-1); LYMPHOCYTES ABSOLUTE AUTO 4.28 K/mm3 (0.84-5.20); LYMPHOCYTES PERCENT AUTO 39 % (21-46); MONOCYTES ABSOLUTE AUTO 0.78 K/mm3 (0.16-1.47); MONOCYTES PERCENT AUTO 7 % (4-13); Mean Corpuscular HGB 27.8 pg (26.0-34.0); Mean Corpuscular HGB Conc 32.5 g/dL (31.5-36.5); Mean Corpuscular Volume 86 fL (80-100); Mean Platelet Volume 11.5 fL (9.1-12.4); NEUTROPHILS ABSOLUTE AUTO 5.63 K/mm3 (1.96-9.15); NEUTROPHILS PERCENT AUTO 51 % (41-73); Platelet Count 293 K/mm3 (150-400); RDW Coefficient Variation 14.6 % (11.7-14.2); RDW Standard Deviation 45.1 fL (35.1-46.3); Red Blood Cell Count 4.97 M/mm3 (3.80-5.20); White Blood Cell Count 11.12 K/mm3 (4.00-11.30)
[2024-03-11 15:07] LABS: BASOPHILS ABSOLUTE AUTO 0.05 K/mm3 (0.00-0.23); BASOPHILS PERCENT AUTO 1 % (0-2); EOSINOPHILS ABSOLUTE AUTO 0.34 K/mm3 (0.00-0.68); EOSINOPHILS PERCENT AUTO 3 % (0-6); Hematocrit 42.5 % (33.0-51.0); Hemoglobin 13.9 g/dL (11.5-16.0); IMMATURE GRAN ABSOLUTE AUTO 0.03 K/mm3 (0.00-0.10); IMMATURE GRAN PERCENT AUTO 0 % (0-1); LYMPHOCYTES PERCENT AUTO 39 % (21-46); MONOCYTES ABSOLUTE AUTO 0.72 K/mm3 (0.16-1.47); MONOCYTES PERCENT AUTO 7 % (4-13); Mean Corpuscular HGB Conc 32.7 g/dL (31.5-36.5); Mean Corpuscular Volume 86 fL (80-100); Mean Platelet Volume 11.6 fL (9.1-12.4); NEUTROPHILS ABSOLUTE AUTO 5.54 K/mm3 (1.96-9.15); NEUTROPHILS PERCENT AUTO 50 % (41-73); Platelet Count 302 K/mm3 (150-400); RDW Coefficient Variation 14.6 % (11.7-14.2); RDW Standard Deviation 45.3 fL (35.1-46.3); Red Blood Cell Count 4.97 M/mm3 (3.80-5.20); White Blood Cell Count 10.98 K/mm3 (4.00-11.30)
[2024-03-11 17:16] LABS: Appearance, Urine Clear (Clear); Bilirubin, Urine Neg (Neg); Blood, Urine Neg (Neg); Color, Urine Yellow (P-Yellow); Glucose Qualitative, Urine 3+ (Normal); Ketones, Urine Neg (Neg); Leukocyte Esterase, Urine Neg (Neg); Nitrite, Urine Neg (Neg); Protein, Urine Neg (Neg); Urobilinogen, Urine NORM (Normal)
[2024-03-11 17:40] LABS: Albumin, Blood 3.4 g/dL (3.4-5.0); Anion Gap 10 mmol/L (3-11); Blood Urea Nitrogen 38 mg/dL (8-24); Bun/Creatinine Ratio 16.7 (12.0-20.0); CO2, Blood 33 mmol/L (21-32); Chloride, Blood 93 mmol/L (98-108); Creatinine, Blood 2.27 mg/dL (0.40-1.00); Glomerular Filtration Rate 24 (60-); Glucose, Blood 225 mg/dL (70-99); Phosphorus, Blood 3.7 mg/dL (2.5-4.9); Sodium, Blood 132 mmol/L (136-145)
[2024-03-11 17:41] LABS: Albumin, Blood 3.5 g/dL (3.4-5.0); Albumin/Globulin Ratio 0.9 (0.8-1.8); Bilirubin, Total 0.5 mg/dL (0.1-1.0); Bun/Creatinine Ratio 15.6 (12.0-20.0); Calcium, Blood 10.2 mg/dL (8.5-10.1); Creatinine, Blood 2.31 mg/dL (0.40-1.00); Total Protein, Blood 7.5 g/dL (6.4-8.2)
[2024-03-11 17:48] LABS: Creatinine, Urine Random 88.6 mg/dL (27.00-270.00); Microalb/Creat Ratio UR, Rand 151.242 mg/g (0.000-30.000)
== END | disposition home or self-care (01) ==
LOC: LAB 14:40 → LAB SHORT 14:40
PROVIDERS: Family Medicine; Hospitalist
DX: I12.9 Hypertensive chronic kidney disease with stage 1 through stage 4 chronic kidney disease, or unspecified chronic kidney disease (principal); N18.32 Chronic kidney disease, stage 3b; R42 Dizziness and giddiness
CPT/HCPCS: 80053; 80069; 81003; 82043; 82570; 84550; 85025

== ENCOUNTER 2024-05-05 13:07 | Day surgery (SDC) | payer OTHER ==
[~2024-05-05] VITALS: Ht 167.6 cm; Wt 112.7 kg
[~2024-05-05 13:07] MED LIST changes: +ALDACTONE25 M1 PO; +Acetaminophen325 M1 PO; +Atropine Sulfate 0.1 MG/ML 10ML SYR ONE; +BASAGLAR K100 UNIT/1 SC; +Glycopyrrolate 0.2 MG/ML 1MLVIAL ONE; +Lactated Ringer's 1,000 ML IV ONE; +Lidocaine 2% 5 ML SDV ONE; +Lidocaine HCl/Pf 1% 5 ML VIAL ONE; +NOVOLOG FL100 UNIT/2 SC; +Nortriptyline H50 MG PO; +ONDA4ODT SL; +Ondansetron HCl 2 MG / ML 2ML Vial ONE; +PROMETHEGAN PR; +RYBELSUS14 MG PO; +ePHEDrine Sulfate 50 MG/ML 1ML Injection ONE; +propofoL 50 ML IV ONE
[2024-05-05] MEDS ORDERED: Lactated Ringer's 1,000 ML IV ONE (14:46)
[2024-05-05] MEDS ORDERED: FentaNYL Citrate 50 MCG/ML 2 ML Injection ONE (14:53)
[2024-05-05] MEDS ORDERED: Midazolam HCL 1 MG/ML 5MLVIAL ONE (14:53)
[2024-05-05] MEDS ORDERED: propofoL 50 ML IV ONE (14:53)
[2024-05-05 16:29] VITALS: BP 118/67
[2024-05-21] MEDS ORDERED: VITAMIN D31000 UNIT PO (15:13)
[2024-05-21] MEDS ORDERED: VITAMIN B122500 MC1 PO (15:14)
[2024-05-21] MEDS ORDERED: Estrace Vagin42.5 GM VAG (15:15)
[2024-05-21] MEDS ORDERED: Diflucan150 MG PO (15:16)
[2024-05-21] MEDS ORDERED: MAGNESIUM OXID500 MG PO (15:17)
[2024-05-21] MEDS ORDERED: STEGLATRO15 MG PO (15:18)
== END 2024-05-05 16:13 | disposition home or self-care (01) ==
LOC: ORSCSDS 13:07
PROVIDERS: Specialist
PROC: 0DBL8ZX Excision of Transverse Colon, Via Natural or Artificial Opening Endoscopic, Diagnostic (ICD-10-PCS; principal; 2024-05-05 15:00)
PROC: 0DBN8ZX Excision of Sigmoid Colon, Via Natural or Artificial Opening Endoscopic, Diagnostic (ICD-10-PCS; principal; 2024-05-05 15:00)
PROC: 0DBM8ZX Excision of Descending Colon, Via Natural or Artificial Opening Endoscopic, Diagnostic (ICD-10-PCS; principal; 2024-05-05 15:00)
PROC: 0DBK8ZX Excision of Ascending Colon, Via Natural or Artificial Opening Endoscopic, Diagnostic (ICD-10-PCS; principal; 2024-05-05 15:00)
DX: Z12.11 Encounter for screening for malignant neoplasm of colon (principal); D12.2 Benign neoplasm of ascending colon; D12.3 Benign neoplasm of transverse colon; D12.4 Benign neoplasm of descending colon; D12.5 Benign neoplasm of sigmoid colon; K57.30 Diverticulosis of large intestine without perforation or abscess without bleeding; Z86.0101 Personal history of adenomatous and serrated colon polyps; E11.22 Type 2 diabetes mellitus with diabetic chronic kidney disease; I12.9 Hypertensive chronic kidney disease with stage 1 through stage 4 chronic kidney disease, or unspecified chronic kidney disease; N18.32 Chronic kidney disease, stage 3b; E78.5 Hyperlipidemia, unspecified; I73.9 Peripheral vascular disease, unspecified; K21.9 Gastro-esophageal reflux disease without esophagitis; Z86.718 Personal history of other venous thrombosis and embolism; Z86.73 Personal history of transient ischemic attack (TIA), and cerebral infarction without residual deficits; Z79.82 Long term (current) use of aspirin; Z79.4 Long term (current) use of insulin; Z79.84 Long term (current) use of oral hypoglycemic drugs; Z79.899 Other long term (current) drug therapy
CPT/HCPCS: 82947; 88305; J0461; J2001; J2003; J2250; J2405; J2704; J3010; J7120

== ENCOUNTER → 2024-05-18 | Outpatient (CLI) | payer OTHER ==
[~2024-05-18] MED LIST changes: -Atropine Sulfate 0.1 MG/ML 10ML SYR ONE; +CEPH250A PO; +Estrace Vagin42.5 GM VAG; -Glycopyrrolate 0.2 MG/ML 1MLVIAL ONE; -Lactated Ringer's 1,000 ML IV ONE; -Lidocaine 2% 5 ML SDV ONE; -Lidocaine HCl/Pf 1% 5 ML VIAL ONE; +MAGNESIUM OXID500 MG PO; -Ondansetron HCl 2 MG / ML 2ML Vial ONE; +STEGLATRO15 MG PO; +VITAMIN B122500 MC1 PO; +VITAMIN D31000 UNIT PO; +XARELTO20 MG PO; -ePHEDrine Sulfate 50 MG/ML 1ML Injection ONE; -propofoL 50 ML IV ONE
[2024-05-18 16:32] LABS: Source, Urine Clean Catch
[2024-05-18 18:40] LABS: Appearance, Urine Cloudy (Clear); Bilirubin, Urine Neg (Neg); Blood, Urine 3+ (Neg); Color, Urine Yellow (P-Yellow); Glucose Qualitative, Urine 4+ (Neg); Ketones, Urine Neg (Neg); Leukocyte Esterase, Urine 1+ (Neg); Nitrite, Urine Neg (Neg); Protein, Urine 2+ (Neg); Urobilinogen, Urine NORM (Normal)
[2024-05-18 19:28] LABS: Amorphous Light (0-Heavy); Bacteria Many /hpf
[2024-05-18 19:29] LABS: Squamous Epithelial Cells Few /hpf (Few)
== END ==
LOC: LAB 16:30 → LAB SHORT 16:30
PROVIDERS: Hospitalist
DX: R39.9 Unspecified symptoms and signs involving the genitourinary system (principal)
CPT/HCPCS: 81001; 87077; 87086; 87186

== ENCOUNTER 2024-05-22 09:00 | Day surgery (SDC) | payer OTHER ==
[2024-05-22] VITALS (8 sets, daily range): BP systolic 103–137; BP diastolic 67–93
[~2024-05-22] VITALS: Ht 167.6 cm; Wt 114.8 kg
[~2024-05-22 09:00] MED LIST changes: -CEPH250A PO; -XARELTO20 MG PO
[2024-05-22] MEDS ORDERED: CEPH250A PO (09:29)
[2024-05-22] MEDS ORDERED: NS 250 ML IV ONE (10:06)
[2024-05-22] MEDS ORDERED: NS 1,000 ML IV ONE ×2 (10:06→10:12)
[2024-05-22] MEDS ORDERED: Heparin Sodium 1000 Units/ML 10ML MDV ONE ×2 (10:06→11:22)
[2024-05-22] MEDS ORDERED: FentaNYL Citrate 50 MCG/ML 2 ML Injection ONE ×2 (10:12→11:04)
[2024-05-22] MEDS ORDERED: Midazolam HCl 1MG / ML 2ML Vial ONE ×2 (10:12→11:04)
[2024-05-22 10:43] LABS: Hematocrit 44.4 % (33.0-51.0); Hemoglobin 14.6 g/dL (11.5-16.0); Mean Corpuscular HGB 27.2 pg (26.0-34.0); Mean Corpuscular HGB Conc 32.9 g/dL (31.5-36.5); Mean Corpuscular Volume 83 fL (80-100); Mean Platelet Volume 12.1 fL (9.1-12.4); Platelet Count 293 K/mm3 (150-400); RDW Standard Deviation 45.4 fL (35.1-46.3); Red Blood Cell Count 5.36 M/mm3 (3.80-5.20); White Blood Cell Count 9.27 K/mm3 (4.00-11.30)
[2024-05-22 11:00] LABS: Bun/Creatinine Ratio 25.3 (12.0-20.0); Calcium, Blood 9.8 mg/dL (8.5-10.1); Creatinine, Blood 1.5 mg/dL (0.40-1.00); Potassium, Blood 4.3 mmol/L (3.5-5.5)
--- NOTE | 2024-05-22 12:05 | NUR ---
ASSUMED CARE OF PT POST PROCEDURE. PT IS DROWSY, BUT CONVERSIVE AND ANSWERING QUESTIONS APPROPRIATELY; DENIES PAIN POST PROCEDURE. MONITOR SR 60'S, B/P 103/67, SPO2 96% RA. R GROIN NO SWELLING/HEMATOMA, TEGADERM DRSG INTACT; ANGIO SEAL DEPLOYED, RLE: DOPPLER SIGNAL X 2.
[2024-05-22] MEDS ORDERED: XARELTO20 MG PO (12:40)
--- NOTE | 2024-05-22 14:50 | NUR ---
patient discharged home stable. verbalized underestanding of discharge insrtuctions and precautions, groin site soft and nontender, no hematoma, no bleeding, dressing D&I. patient taken to car via wheel cahir by GHANSHYAM MEJIA.
== END 2024-05-22 16:22 | disposition home or self-care (01) ==
LOC: MHTC 09:00
PROVIDERS: Radiology Diagnostic Radiology
DX: E11.51 Type 2 diabetes mellitus with diabetic peripheral angiopathy without gangrene (principal); I70.444 Atherosclerosis of autologous vein bypass graft(s) of the left leg with ulceration of heel and midfoot; I70.235 Atherosclerosis of native arteries of right leg with ulceration of other part of foot; I12.9 Hypertensive chronic kidney disease with stage 1 through stage 4 chronic kidney disease, or unspecified chronic kidney disease; E11.22 Type 2 diabetes mellitus with diabetic chronic kidney disease; N18.2 Chronic kidney disease, stage 2 (mild); K21.9 Gastro-esophageal reflux disease without esophagitis; E78.5 Hyperlipidemia, unspecified; Z79.82 Long term (current) use of aspirin; Z79.4 Long term (current) use of insulin; Z79.899 Other long term (current) drug therapy; Z88.2 Allergy status to sulfonamides; Z88.1 Allergy status to other antibiotic agents; Z88.5 Allergy status to narcotic agent; Z88.8 Allergy status to other drugs, medicaments and biological substances; Z89.422 Acquired absence of other left toe(s); Z86.73 Personal history of transient ischemic attack (TIA), and cerebral infarction without residual deficits
CPT/HCPCS: 37227; 37252; 75625; 75716; 75774; 76937; 80048; 85027; 99152; 99153; C1714; C1725; C1753; C1760; C1769; C1874; C1887; C1894; C2623; J1644; J2250; J3010; J7030; J7050; Q9967